=== PATIENT | female | born 1945 | race Caucasian/White ===

== ENCOUNTER 2017-04-05 13:04 | Emergency (ER) | payer SELFPAY ==
[~2017-04-05] VITALS: Ht 165.1 cm; Wt 100.0 kg
[2017-04-05 13:35] VITALS: BP 134/67
[2017-04-05] MEDS ORDERED: SULFAMETHOXAZOLE/TRIMETHOPRIM 800/160MG TABLET PO ONE (14:30)
[2017-04-05] MEDS ORDERED: CEPHALEXIN 500MG CAPSULE PO ONE (14:30)
== END 2017-04-05 18:40 | disposition home or self-care (01) ==
LOC: ER 18:40
DX: L03.213 Periorbital cellulitis (principal); I10 Essential (primary) hypertension; E03.9 Hypothyroidism, unspecified; E78.00 Pure hypercholesterolemia, unspecified; E11.9 Type 2 diabetes mellitus without complications; Z85.3 Personal history of malignant neoplasm of breast
CPT/HCPCS: 99283